=== PATIENT | female | born 1955 | race Caucasian/White ===

== ENCOUNTER → 2018-10-25 | Outpatient (CLI) | payer OTHER ==
--- NOTE | 2018-10-25 14:29 | KCIC ---
MRI of the lumbar spine without contrast 10/25/2018 CLINICAL HISTORY: Low back pain which radiates down the right leg. TECHNIQUE: Unenhanced T1-weighted and T2-weighted sagittal and axial and inversion recovery sagittal images of the lumbar spine were obtained. FINDINGS: Very mild S-shaped curvature of the thoracolumbar spine is seen. Degenerative signal changes are seen involving the L2-3, L3-4, L4-5 and L5-S1 discs. Degenerative signal changes are seen within the marrow surrounding these discs. Loss of height of the L5-S1 discs is noted. A 1.4 cm hemangioma is seen involving the L4 vertebral body. The conus medullaris is within normal limits in morphology, position, and signal characteristics. The L1-2 disc space is within normal limits. At L2-3 disc space there is a mild generalized disc bulge. This is eccentric to the right. Degenerative changes are seen involving the facet joints bilaterally. There is mild ligamentum flavum hypertrophy bilaterally. These findings when combined do not result in significant central spinal canal or neural foraminal stenosis. At the L3-4 disc space there is a mild to moderate generalized disc bulge. This is eccentric to the right. Degenerative changes are seen involving the facet joints bilaterally. There is mild to moderate ligamentum flavum hypertrophy bilaterally. There is prominence of the posterior epidural fat. Small facet joint effusions are seen bilaterally. These findings when combined result in mild to moderate right greater than left central spinal canal stenosis. No neural foraminal stenosis is seen. At the L4-5 disc space there is a moderate generalized disc bulge. Superimposed on this disc bulge is a focal central disc protrusion. This measures 2 mm in AP diameter. Degenerative changes are seen involving the facet joints bilaterally. There are small facet joint effusions bilaterally. There is mild to moderate ligamentum flavum hypertrophy bilaterally. These findings when combined result in mild to moderate central spinal canal stenosis. No neural foraminal stenosis is seen. At the L5-S1 disc space there is a mild to moderate generalized disc bulge. Degenerative changes are seen involving the facet joints bilaterally. There is mild ligamentum flavum hypertrophy bilaterally. These findings when combined do not result in significant central spinal canal or neural foraminal stenosis. IMPRESSION: The changes of degenerative disc disease are seen throughout the lumbar spine. These findings result in mild to moderate right greater than left central spinal canal stenosis at L3-4 and mild to moderate central spinal canal stenosis at L4-5. No neural foraminal stenosis is seen. Electronically signed by: Khoa Mckenna MD (10/25/2018 2:27 PM) [facility]
--- NOTE | 2018-10-25 16:57 | KCIC ---
MR of the right knee HISTORY: Right knee pain. Surgery 1991. Pain is chronic. Technique routine multiplanar sequences are obtained. FINDINGS: There is motion degradation. Small posterior horn and root of the medial meniscus compatible with a tear unless explained by prior meniscectomy. Lateral meniscus is small and distorted compatible with a tear. Anterior cruciate ligament is heterogeneous and hyperintense compatible with degeneration. No definite full-thickness rupture or Pivot shift bone injury but partial tearing could be present. Posterior cruciate ligament is intact. Medial collateral ligament intact. Iliotibial band unremarkable. Fibular collateral ligament, biceps femoris tendon and popliteus tendon are intact. Extensor mechanism is intact. Small joint effusion. Primary osteoarthritis at all joint compartments most severe at the lateral compartment. No acute fracture. No aggressive bone destruction. Intraosseous cysts at the proximal tibia. There is degenerative hypertrophy of the fabella. IMPRESSION: 1. Lateral meniscal tear. 2. Medial meniscal tear versus prior meniscectomy. 3. Severe primary osteoarthritis. 4. Poorly defined anterior cruciate ligament can be due to degeneration, but partial tearing difficult to exclude. Electronically signed by: Du Jerry MD (10/25/2018 4:54 PM) [facility]
== END | disposition home or self-care (01) ==
LOC: KCIC MRI 12:47
PROVIDERS: ATTEND Family Medicine
DX: S83.281A Other tear of lateral meniscus, current injury, right knee, initial encounter (principal); M51.16 Intervertebral disc disorders with radiculopathy, lumbar region; M48.061 Spinal stenosis, lumbar region without neurogenic claudication; M17.11 Unilateral primary osteoarthritis, right knee; M89.38 Hypertrophy of bone, other site; M25.48 Effusion, other site; M25.461 Effusion, right knee; X58.XXXA Exposure to other specified factors, initial encounter; Y93.89 Activity, other specified; Y92.89 Other specified places as the place of occurrence of the external cause; Y99.8 Other external cause status
CPT/HCPCS: 72148; 73721

== ENCOUNTER → 2019-02-09 | Outpatient (CLI) | payer OTHER ==
[~2019-02-09] MED LIST: ACET500T68 PO; CALC0.25 PO; CALC200T19 PO; CELE200C PO; FERR325T14 PO; GABA-585 PO; LEVO150T5 PO; MAGN400T22 PO; OMEP20TA63 PO; [UNRECOGNIZED DRUG - OTHER]
--- NOTE | 2019-02-09 19:23 | PAIN ---
DATE OF SERVICE: 02/09/2019 INITIAL CONSULTATION FOR PAIN CLINIC CHIEF COMPLAINT: Low back and right greater than left lower extremity pain. HISTORY OF PRESENT ILLNESS: This is a 63-year-old female who presents with history of pain in the low back and lower extremities, more on the right for about 4 years, not a result of any specific injury or action that she is aware of, gradually increasing, also has some significant pain in the right knee and her orthopedist is planning a total knee replacement in the near future as well. The patient reports that when she walks with her knee, she favors the right side and it does cause some increased back pain as well. The patient reports the pain in her back and legs is sharp, throbbing, shooting, radiating to the right leg, better with changing positions, standing, or walking, but walking for prolonged periods causes the pain to increase, it awakens her from sleep about 4 times a night, does not affect her bowel or bladder control or her ability to walk. Significantly, she is not using any assistive devices. The patient has had physical therapy which is for her knee, also has chiropractic treatment going on currently, which has not been significantly helpful. The patient has tried Tylenol Extra Strength as well as Celebrex, both of which do decrease the pain by about 40%-50%, but are limited in duration. The patient reports her disability rating from 0-10, 10 being the worst, is a 6 with family home responsibilities, social activity, occupation, 7 with recreation and sexual behavior, and with self-care, and 0 with life support activities. The patient did have MRI scan of the lumbar spine showing degenerative disk disease with [id number] right greater than left central spinal canal stenosis at L3-L4, [id number] central spinal canal stenosis at L4-L5, with bulging disk and central focal disk protrusion at L4-L5 as well. The patient reports no loss of motor function, but significant fatigability of the right lower extremity compared to the left with ambulation, walking, and with swimming also. PAST MEDICAL HISTORY: Significant for arthritis, gastroesophageal reflux, hyperthyroidism status post thyroidectomy, and resultant calcium imbalance. OTHER SURGERIES: Include right abdominal hernia 6 weeks ago; left knee scope, right leg vein stripping, D and C, tubal ligation, and a right wrist tendon repair. CURRENT MEDICATIONS: Include levothyroxine, Lodiric, Celebrex, Prilosec, Calcitriol, Calcitrate, magnesium oxide, iron, Tylenol Extra Strength, and Neurontin. ALLERGIES: THE PATIENT IS ALLERGIC TO VALIUM, QUININE, FENTANYL, ____ AND ADHESIVE TAPES. FAMILY HISTORY: Significant for arthritis, cancers, thyroid disease, and MS. SOCIAL HISTORY: The patient drinks about 1 glass of wine twice a month. She does not smoke. She does not use any illegal, illicit, or recreational drugs. 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 REVIEW OF SYSTEMS: The patient's review of systems is positive for those items mentioned in history of present illness. All systems reviewed and otherwise negative. It is complete, full and well documented on the patient's chart. PHYSICAL EXAMINATION: VITAL SIGNS: The patient's blood pressure 122/70, pulse 78, respirations 16, temperature 97.9 degrees Fahrenheit, height is 5 feet 9 inches and weight is 180 pounds. GENERAL: The patient is awake, alert, oriented, appropriate, very pleasant demeanor. HEENT: Shows normocephalic and atraumatic. The patient is wearing eyeglasses. Extraocular movements are intact and symmetrical. Oral cavity: Mucous membranes are moist and pink. Dentition is intact. NECK: Shows anterior throat is supple, without palpable lymphadenopathy noted. Swallow reflex symmetrical. CHEST: Shows normal on inspection. Breath sounds are clear to auscultation bilaterally. HEART: Shows S1 and S2 clear. No murmurs auscultated. ABDOMEN: Soft, nontender, and nondistended. Well-healed surgical scar is noted with some moderate tenderness near the scar, but only moderately without radiation. BACK: The patient's back shows spine grossly in the midline. Normal appearing thoracic kyphosis and lumbar lordotic curvature. Lumbar paraspinous muscle shows symmetrical on inspection, on palpation shows some moderate tenderness diffusely bilaterally, but only diffusely in the middle and lower and upper distribution of paraspinous muscles throughout. No tenderness over the spinous processes, sacrum, or sacroiliac regions. The patient has good rotational motion of lumbar spine, both laterally greater than 10 degrees of right and left as well as extension greater than 10 degrees, forward flexion 45 degrees without significant pain reported. EXTREMITIES: Lower extremities show deep tendon reflexes 2+ in the patellar, 1+ in tendo-calcaneus, tendons are equal. Motor exam is strong with 5/5 dorsiflexion, extension, quadriceps, and hamstring flexion and symmetrical peripheral pulses are 1+ posterior tibia. No peripheral edema is noted bilaterally. Straight leg raise noted to be mildly positive on the right about 45 degrees, decreased with knee flexion, left side is negative. Gaenslen's and Vick's maneuvers are negative bilaterally. The patient is able to stand, stand on her toes without difficulty or loss of balance, walks with a normal appearing gait for a short distance in the office today without any assistive devices. SKIN: Shows warm and dry, good turgor. No edema. No sores, rashes, or bruising throughout. IMPRESSION: 1. This is a 63-year-old female with approximate 4-year history of increasing pain in low back, bilateral lower extremities in a radicular fashion, right greater than left, following an L4-L5 dermatomal distribution on the right significantly. 2. MRI scan of lumbar spine as noted. 3. Arthritis. 4. Gastroesophageal reflux. 5. Hypocalcemia. PLAN: Options were discussed with the patient including conservative medical management, physical therapies, interventional techniques and she would like to pursue interventional techniques. We discussed a lumbar epidural steroid injection using description as well as anatomical models to describe the procedure. The patient will wait for preauthorization with her insurance provider. In the meantime, we will try Medrol Dosepak. The patient was given instruction as well as side effects to be aware of with her medication and will follow up after this is completed and after preauthorization for lumbar epidural steroid injection at L4-L5 level for right L4-L5 radiculopathy. DAGMAR GONZALES MD DR: CARLOS/jen JOB#: [id number] / [id number]
== END | disposition home or self-care (01) ==
LOC: PNCL 07:53
PROVIDERS: ATTEND Anesthesiology
DX: M54.5 Low back pain (principal); M79.605 Pain in left leg; M19.90 Unspecified osteoarthritis, unspecified site; K21.9 Gastro-esophageal reflux disease without esophagitis; E05.90 Thyrotoxicosis, unspecified without thyrotoxic crisis or storm; E83.51 Hypocalcemia; Z90.89 Acquired absence of other organs; Z98.51 Tubal ligation status; Z88.8 Allergy status to other drugs, medicaments and biological substances; Z91.048 Other nonmedicinal substance allergy status
CPT/HCPCS: G0463